=== PATIENT | female | born 1960 | race Caucasian/White ===

== ENCOUNTER → 2024-03-07 07:48 | Outpatient (REF) | payer BC, SELFPAY | LOC: HWRAD 07:48 | PROVIDERS: ATTENDING PHYSICIAN Obstetrics & Gynecology; FAMILY PHYSICIAN Family Medicine | DX: N95.0 Postmenopausal bleeding (principal) | CPT/HCPCS: 76830; 76856 ==

== ENCOUNTER → 2024-04-28 09:19 | Outpatient (REF) | payer BC, SELFPAY | LOC: RAD 09:19 | PROVIDERS: ATTENDING PHYSICIAN Obstetrics & Gynecology; FAMILY PHYSICIAN Family Medicine | DX: C54.1 Malignant neoplasm of endometrium (principal) | CPT/HCPCS: 71046 ==

== ENCOUNTER → 2024-05-03 08:46 | Outpatient (REF) | payer BC, SELFPAY | LOC: RAD 08:46 | PROVIDERS: ATTENDING PHYSICIAN Obstetrics & Gynecology; FAMILY PHYSICIAN Family Medicine | DX: C54.1 Malignant neoplasm of endometrium (principal) | CPT/HCPCS: 74177; Q9967 ==